=== PATIENT | female | born 1975 | race Caucasian/White ===

== ENCOUNTER 2019-01-01 14:05 | Day surgery (SDC) | payer BC ==
[~2019-01-01] VITALS: Ht 157.5 cm; Wt 76.4 kg
[2019-01-01] MEDS ORDERED: ZANAFLEX2 MG PO (14:34)
[2019-01-01] MEDS ORDERED: CYMBALTA 60MG60 MG PO (14:34)
[2019-01-01] MEDS ORDERED: VOLTAREN GEL 1%1 TU TP (14:34)
[2019-01-01] MEDS ORDERED: REVIA 50MG TABL50 MG PO (14:35)
[2019-01-01] MEDS ORDERED: NAPROXEN 3375 MG/TAB PO (14:35)
[2019-01-01] MEDS ORDERED: AMOXICILLIN875 MG PO (14:35)
[2019-01-01] MEDS ORDERED: LIDODERM 5% PATC1 EA TP (14:35)
[2019-01-01 14:36] VITALS: BP 102/65; PULSE 75; TEMP 97.8
[2019-01-01 16:35] VITALS: BP 108/60; PULSE 82; TEMP 97.6
--- NOTE | 2019-01-01 16:35 | NUR ---
Patient arrives to [facility] via cart, accompanied by [facility] RN Elaine. Patient is alert and oriented. She ambulates to chair in room with standby assist. Monitoring applied - VSS and WNL on room air. Denies any pain or nausea. Offered and receives a muffin and juice. Her and daughter are at the bedside. Will continue to monitor.
--- NOTE | 2019-01-01 16:36 | NUR ---
Dr. Lomax at the bedside.
[2019-01-01 16:50] VITALS: BP 102/66; PULSE 82
--- NOTE | 2019-01-01 16:50 | NUR ---
VSS and WNL on room air. Resting comfortably in room. Tolerating PO well. Denies any pain, nausea, or need at this time.
[2019-01-01 17:05] VITALS: BP 106/70; PULSE 78
--- NOTE | 2019-01-01 17:05 | NUR ---
VSS and WNL on room air.
--- NOTE | 2019-01-01 17:12 | NUR ---
Discharge criteria has been met. Discharge instructions discussed, denies any questions, and verbalizes understanding. PIV removed with catheter intact and hemostasis achieved. Patient changing to clothing independently.
--- NOTE | 2019-01-01 17:16 | NUR ---
Patient refuses wheelchair. Escorted to exit. Ambulates with steady gait. Discharged to home with ride in private vehicle at 1716.
== END 2019-01-01 17:16 | disposition home or self-care (01) ==
LOC: SDCO 14:05
DX: K59.09 Other constipation (principal); R14.0 Abdominal distension (gaseous); R10.84 Generalized abdominal pain; Z86.19 Personal history of other infectious and parasitic diseases
CPT/HCPCS: J2250; J3010; J7030

== ENCOUNTER 2019-07-16 14:25 | Outpatient (CLI) | payer BC ==
[~2019-07-16] VITALS: Ht 157.5 cm; Wt 80.0 kg
[~2019-07-16 14:25] MED LIST: AMOXICILLIN875 MG PO; CYMBALTA 60MG60 MG PO; LIDODERM 5% PATC1 EA TP; NAPROXEN 3375 MG/TAB PO; REVIA 50MG TABL50 MG PO; VOLTAREN GEL 1%1 TU TP; ZANAFLEX2 MG PO
[2019-07-16 14:45] VITALS: BP 107/66; PULSE 69; TEMP 99.1
[2019-07-16 14:51] LABS: BASO % 0.4 % (0.0-2.0); EOS # 0.1 (0.0-0.7); GRAN # 3.9 (1.4-6.5); GRAN % 50.2 % (42.2-75.2); HEMATOCRIT 39.3 % (37.0-47.0); HEMOGLOBIN 13.3 g/dl (12.5-16.0); LYMPH # 3.1 (1.2-3.4); LYMPH % 39.8 % (20.0-51.0); MEAN CELL VOLUME 88 fl (80.0-100.0); MEAN CORPUSCULAR HEMOGLOBIN 30 pg (27.0-31.0); MEAN CORPUSCULAR HGB CONC 34 g/dl (33.0-37.0); MEAN PLATELET VOLUME 9.7 fl (7.4-10.4); MONO # 0.6 (0.1-0.6); MONO % 8.1 % (1.7-9.3); PLATELET COUNT 246 K/mm3 (130-400); RED BLOOD COUNT 4.48 M/mm3 (4.10-5.30); REDCELL DISTRIBUTION WIDTH-CV 12.9 % (11.5-14.5)
[2019-07-16 14:59] LABS: ALBUMIN 4.5 gm/dL (3.5-5.0); BILIRUBIN,TOTAL 0.3 mg/dL (0.0-1.0); CALCIUM 9.2 mg/dL (8.4-10.2); CREATININE, serum 0.7 (0.52-1.25); POTASSIUM 3.9 mmol/L (3.4-5.0); TOTAL PROTEIN 8.2 gm/dL (6.4-8.2)
[2019-07-16] MEDS ORDERED: PROBIOTIC FORMU1 CAP PO (15:00)
[2019-07-16] MEDS ORDERED: VITAMIN D32000 I1 PO (15:01)
--- NOTE | 2019-07-16 16:10 | NUR ---
Report to Ximena Ash RN who assumed care at this time.
--- NOTE | 2019-07-16 16:19 | NUR ---
report from Neal Mac.
== END 2019-07-16 17:07 | disposition home or self-care (01) ==
LOC: EUO 14:25
PROVIDERS: Family Medicine
DX: K52.9 Noninfective gastroenteritis and colitis, unspecified (principal)
CPT/HCPCS: J7030

== ENCOUNTER → 2021-07-20 | Outpatient (CLI) | payer BC ==
[~2021-07-20] MED LIST changes: +PROBIOTIC FORMU1 CAP PO; +VITAMIN D32000 I1 PO
== END ==
LOC: MC.RAD 13:44
DX: Z12.31 Encounter for screening mammogram for malignant neoplasm of breast (principal); N63.20 Unspecified lump in the left breast, unspecified quadrant

== ENCOUNTER → 2021-07-24 | Outpatient (CLI) | payer BC | LOC: MC.RAD 10:58 | DX: N60.02 Solitary cyst of left breast (principal) ==

== ENCOUNTER → 2023-01-04 | Outpatient (CLI) | payer BC | LOC: MC.RAD 14:37 | DX: Z12.31 Encounter for screening mammogram for malignant neoplasm of breast (principal) ==

== ENCOUNTER → 2023-02-08 | Outpatient (CLI) | payer BC | LOC: COL.RAD 02-01 12:00 | DX: E04.9 Nontoxic goiter, unspecified (principal) ==